=== PATIENT | male | born 1965 | race Hispanic/Latino ===

== ENCOUNTER → 2024-06-24 | Day surgery (SDC) | payer OTHER ==
[~2024-06-24] MED LIST: ATENOLOL50 MG PO; FENTANYL CITRATE/PF 100MCG/2 ML INJ ONE; HYOSCYAMINE SULFATE 0.5 MG/ML INJ ONE; MIDAZOLAM HCL 2 MG/2 ML VIAL ONE; PROPOFOL IV EMULSION 50 ML IV ONE; TYLENOL325 MG PO; VITAMIN C1000 MG PO
[2024-06-24] MEDS: LACTATED RINGER'S 1,000 ML ONE (08:55)
[2024-06-24 11:40] VITALS: BP 121/74; PULSE 70; RESP 17; TEMP 97.2; O2SAT 97
== END | disposition home or self-care (01) ==
LOC: OR 08:27
PROVIDERS: ATTEND Internal Medicine Gastroenterology
DX: Z12.11 Encounter for screening for malignant neoplasm of colon (principal); D12.3 Benign neoplasm of transverse colon; K62.1 Rectal polyp; K64.8 Other hemorrhoids; I10 Essential (primary) hypertension; F17.200 Nicotine dependence, unspecified, uncomplicated; Z01.810 Encounter for preprocedural cardiovascular examination; Z79.899 Other long term (current) drug therapy
CPT/HCPCS: 45385; 93005; J1980; J2250; J2704; J3010; J7121; 45378